=== PATIENT | female | born 1995 | race Caucasian/White ===

== ENCOUNTER 2020-11-02 09:07 | Emergency (ER) | payer SELFPAY ==
[~2020-11-02] VITALS: Ht 165.1 cm; Wt 67.1 kg
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
[2020-11-02] MEDS ORDERED: IBUP-1955 PO (09:48)
[2020-11-02] MEDS: TDAP [DIPH/PERTUSSIS/TET] 0.5 ML VIAL IM ONE (10:10)
[2020-11-02] MEDS: IBUPROFEN 600 MG TABLET PO ONE (10:10)
[2020-11-02] MEDS: NEOMY SULF/BACITRAC ZN/POLY 15 GM TUBE TP SCH (10:10)
--- NOTE | 2020-11-02 10:11 | NUR ---
The patient alert and oriented x4. Refused ordered motrin and tdap despite explaining risks and benefits. Dr Freedman made aware. Patient discharged to home in stable condition. Written and verbal after care instructions given. Patient verbalizes understanding of instruction.
[2020-11-02 10:12] VITALS: BP 121/65
== END 2020-11-02 10:12 | disposition home or self-care (01) ==
LOC: ER 09:13
DX: S80.12XA Contusion of left lower leg, initial encounter (principal); V32.5XXA Driver of three-wheeled motor vehicle injured in collision with two- or three-wheeled motor vehicle in traffic accident, initial encounter; Y93.89 Activity, other specified; Y92.413 State road as the place of occurrence of the external cause; Y99.8 Other external cause status
CPT/HCPCS: 73590-TC

== ENCOUNTER 2021-01-06 13:12 | Inpatient (IN) | payer OTHER ==
[~2021-01-06] VITALS: Ht 165.1 cm; Wt 66.2 kg
[~2021-01-06 13:12] MED LIST: IBUP-1955 PO
--- NOTE | 2021-01-06 13:30 | NUR ---
The patient bibs for c/o sob 94% on room air, cough, covid + 10 days ago. Patient noted with non-productive cough. Denies pain at this time. Respiration regular and unlabored. Attached to the monitor. Isoaltion precautions observed. Will continue to monitor the patient.
[2021-01-06] MEDS ORDERED: PRED20TA PO (13:43)
[2021-01-06 14:42] LABS: BASOPHILS % (AUTO) 0.2 % (0.0-2.0); EOSINOPHILS % (AUTO) 0.1 % (0.0-6.0); HEMATOCRIT 39 % (33-45); HEMOGLOBIN 13.1 g/dL (11.5-14.8); MEAN CORPUSCULAR HGB CONC 34 g/dl (31.0-36.0); MEAN CORPUSCULAR VOLUME 89 fL (82-100); MONOCYTES # (AUTO) 0.5 K/uL (0.1-1.30); MONOCYTES % (AUTO) 8.3 % (2.0-12.0); NEUTROPHILS # (AUTO) 4.8 K/uL (1.8-8.9); NEUTROPHILS % (AUTO) 75.4 % (43.0-81.0); PLATELET COUNT (AUTO) 314 K/uL (150-450); RED BLOOD CELL COUNT(AUTO) 4.38 MIL/uL (4.0-5.2); WHITE BLOOD COUNT (AUTO) 6.4 K/uL (4.3-11.0)
--- NOTE | 2021-01-06 14:42 | NUR ---
covid and mrsa nares swabs done and sent to the lab.
--- NOTE | 2021-01-06 14:43 | NUR ---
the patient states that she does not feel urinating now, will try again later
[2021-01-06 15:04] LABS: CALCIUM, SERUM 8.5 mg/dL (8.5-10.1); CARBON DIOXIDE 27 mmol/L (21-32); CHLORIDE 106 mmol/L (98-107); CREATININE 0.7 mg/dL (0.6-1.3); GLUCOSE 88 mg/dL (74-106); POTASSIUM 3.6 mmol/L (3.5-5.1); SODIUM SERUM 142 mmol/L (136-145); UREA NITROGEN, BLOOD 13 mg/dL (7-18)
[2021-01-06 15:06] LABS: D-DIMER 0.48 mg/L(FEU (0.17-0.50)
[2021-01-06 15:11] LABS: ALANINE AMINOTRANSFERASE 10 U/L (12-78); ALBUMIN 3.7 g/dL (3.4-5.0); ALKALINE PHOSPHATASE 44 U/L (46-116); ASPARTATE AMINOTRANSFERASE 19 U/L (15-37); BILIRUBIN,TOTAL 0.3 mg/dL (0.2-1.0); TOTAL PROTEIN, SERUM 7.2 g/dL (6.4-8.2)
[2021-01-06 15:13] LABS: C-REACTIVE PROTEIN 0.6 mg/dL (0.0-0.9); CREATINE KINASE, TOTAL 28 U/L (26-192); FERRITIN 363 ng/mL (8-388)
[2021-01-06 15:30] VITALS: BP 100/62
--- NOTE | 2021-01-06 15:50 | NUR ---
Received patient from ED. Admission started and inventory done. Patient vitals assessed and charted.
[2021-01-06] MEDS ORDERED: AZITHROMYCIN 250 MG TABLET PO ONE (16:00)
[2021-01-06] MEDS ORDERED: DEXAMETHASONE SOD PHOSPHATE 10 MG/ML VIAL IV ONE (16:00)
[2021-01-06] MEDS ORDERED: CEFTRIAXONE 1 G in IV D5W 50 ML IV ONE (16:00)
[2021-01-06] MEDS ORDERED: AZITHROMYCIN 250 MG TABLET ONE (16:10)
[2021-01-06] MEDS ORDERED: CEFTRIAXONE 1GM BAG (ER ONLY) 50 ML IV ONE (16:10)
[2021-01-06] MEDS ORDERED: DEXAMETHASONE SOD PHOSPHATE 10 MG/ML VIAL ONE (16:10)
--- NOTE | 2021-01-06 16:10 | NUR ---
PT ASSIGNED TO 108
--- NOTE | 2021-01-06 16:17 | NUR ---
REPORT GIVEN TO NURSE NIMCO
[2021-01-06] MEDS ORDERED: ONDANSETRON HCL/PF 4 MG/2 ML VIAL IVP PRN (17:00)
[2021-01-06] MEDS ORDERED: Z GUARD REMEDY 2 OZ OINT TP PRN (17:00)
[2021-01-06] MEDS ORDERED: MAGNESIUM HYDROXIDE 30 ML UDC PO PRN (17:00)
[2021-01-06] MEDS ORDERED: ACETAMINOPHEN 325 MG TABLET PO PRN (17:00)
[2021-01-06] MEDS ORDERED: MAG HYDROX/AL HYDROX/SIMETH 30 ML UDC PO PRN (17:00)
[2021-01-06] MEDS ORDERED: ENOXAPARIN SODIUM 40 MG/0.4 ML DISP.SYRIN SQ SCH (18:00)
--- NOTE | 2021-01-06 19:00 | NUR ---
KNITTED CLOTH EXAMINER CLOSING NOTES Patient is alert and oriented. Patient is breathing even and unlabored. On room air saturating 95%. No c/o of sob. HOB kept elevated. Admission assessments done and charted. Endorsed to next shift to monitor. Call light within reach. Patient in bed resting comfortably.
--- NOTE | 2021-01-06 19:10 | NUR ---
RN NOTE RECEIVED PATIENT IN BED RESTING ALERT ORIENTEDX4 VERBALLY RESPONSIVE,ABLE TO MAKE NEEDS KNOWN, ON ROOM AIR O2:96%,IV SITE IS ON RIGHT HAND INTACT PATENT,AMBULATORY,CONTINENT TO BOWL/BLADDER,SAFETY MEASURE IMPLEMENT,CALL LIGHT WITHIN REACH,BED IN LOW POSITION AND LOCKED CONTINUE TO MONITOR.
[2021-01-06 20:00] VITALS: BP 102/59
[2021-01-07] VITALS: BP 100/54
[2021-01-07 04:00] VITALS: BP 100/54
--- NOTE | 2021-01-07 06:50 | NUR ---
RN NOTE PATIENT REMAINS ON ALERT ORIENTED VERBALLY RESPONSIVE NO SOB NOT ACUTE DISTRESS NOTED ON ROOM AIR O2;96% AMBULATORY CONTINENT TO BOWEL/BLADDER ALL NEEDS MET ENDORSE NEXT COMING SHIFT T FOR CONTINUATION OF CARE.
[2021-01-07 07:17] LABS: BASOPHILS % (AUTO) 0.1 % (0.0-2.0); HEMATOCRIT 40 % (33-45); HEMOGLOBIN 13.4 g/dL (11.5-14.8); LYMPHOCYTES # (AUTO) 0.9 K/uL (0.8-4.8); LYMPHOCYTES % (AUTO) 17.8 % (20.0-44.0); MEAN CORPUSCULAR HGB CONC 34 g/dl (31.0-36.0); MEAN CORPUSCULAR VOLUME 88 fL (82-100); MONOCYTES # (AUTO) 0.4 K/uL (0.1-1.30); MONOCYTES % (AUTO) 7.6 % (2.0-12.0); NEUTROPHILS # (AUTO) 3.6 K/uL (1.8-8.9); NEUTROPHILS % (AUTO) 74.5 % (43.0-81.0); PLATELET COUNT (AUTO) 366 K/uL (150-450); RED BLOOD CELL COUNT(AUTO) 4.52 MIL/uL (4.0-5.2); WHITE BLOOD COUNT (AUTO) 4.8 K/uL (4.3-11.0)
--- NOTE | 2021-01-07 07:30 | NUR ---
RN NOTE PATIENT IS CURRENTLY IN BED WITH HOB AT SEMI FOWLERS POSITION. PATIENT IS AOX4. PATIENT IS ON ROOM AIR WITH NO SIGNS OF LABORED BREATHING. RWRIST IV ACCESS IS PATENT AND INTACT. BED IS LOCKED IN THE LOWEST POSITION, 3 GUARD RAILS RAISED, CALL SANCHEZ WITHIN REACH, AND ALL HOSPITAL SAFETY PRECAUTIONS ARE BEING FOLLOWED. WILL CONTINUE TO MONITOR THROUGHOUT SHIFT.
[2021-01-07 07:55] LABS: ALBUMIN 3.6 g/dL (3.4-5.0); BILIRUBIN,TOTAL 0.3 mg/dL (0.2-1.0); CALCIUM, SERUM 8.8 mg/dL (8.5-10.1); CREATININE 0.6 mg/dL (0.6-1.3); MAGNESIUM 2.2 mg/dL (1.8-2.4); PHOSPHORUS 4.6 mg/dL (2.5-4.9); POTASSIUM 4.2 mmol/L (3.5-5.1); TOTAL PROTEIN, SERUM 7.6 g/dL (6.4-8.2)
[2021-01-07 08:00] VITALS: BP 108/68
[2021-01-07] MEDS ORDERED: DEXAMETHASONE SOD PHOSPHATE 10 MG/ML VIAL IV SCH (09:00)
[2021-01-07 12:00] VITALS: BP 100/63
--- NOTE | 2021-01-07 12:00 | NUR ---
RN NOTE PATIENT SATURATING 94% ON ROOM AIR WHILE AMBULATING. DR. SIMPSON NOTIFIED.
--- NOTE | 2021-01-07 13:30 | NUR ---
richard note patient discharged in stable condition. Addendum: 01/07/21 at 1627 by KWESI VARGAS RN occurred at 1530 not 1330
[2021-01-07] MEDS ORDERED: CEFTRIAXONE 1 G in IV D5W 50 ML IV SCH (16:00)
[2021-01-07] MEDS ORDERED: AZITHROMYCIN 500 MG in IV D5W 250 ML IV SCH (17:00)
== END 2021-01-07 16:38 | disposition home or self-care (01) | DRG 137 ==
LOC: ER 13:14 → TELE1 16:53
PROVIDERS: ADMIT Internal Medicine; ATTEND Internal Medicine
DX: U07.1 COVID-19 (principal); J96.01 Acute respiratory failure with hypoxia; J12.82 Pneumonia due to coronavirus disease 2019
CPT/HCPCS: 36415; 71045-TC; 80053-TC; 80061-TC; 82550-TC; 82728-TC; 83605-TC; 83615-TC; 83735-TC; 83880; 84100-TC; 84484-TC; 85025-TC; 85378-TC; 85730-TC; 86140-TC; 87040-TC; 87081-TC; G0378; J0456; J0696; J1100; J1650; J7050; J7060; U0003

== ENCOUNTER 2024-05-24 13:06 | Emergency (ER) | payer MEDICAID, OTHER ==
[~2024-05-24] VITALS: Ht 162.6 cm; Wt 81.6 kg
[~2024-05-24 13:06] MED LIST changes: -IBUP-1955 PO; +PRED20TA PO
[2024-05-24 13:10] VITALS: BP 139/66; TEMP 98.3; O2SAT 99
[2024-05-24] MEDS ORDERED: AMOX-430 PO (13:23)
[2024-05-24] MEDS ORDERED: CIPR7.5D9 LEFT EAR (13:23)
[2024-05-24] MEDS ORDERED: ACETAMINOPHEN 325 MG TABLET ONE (14:01)
[2024-05-24] MEDS: ACETAMINOPHEN 325 MG TABLET PO ONE (14:02)
== END 2024-05-24 14:03 | disposition home or self-care (01) ==
LOC: ER 13:12
DX: H60.92 Unspecified otitis externa, left ear (principal); H72.92 Unspecified perforation of tympanic membrane, left ear; H92.02 Otalgia, left ear; Z79.52 Long term (current) use of systemic steroids; Z86.16 Personal history of COVID-19